=== PATIENT | male | born 1980 | race Caucasian/White ===

== ENCOUNTER 2024-07-08 15:08 | Outpatient (CLI) | payer OTHER, SELFPAY | END 2024-07-08 15:09 | disposition home or self-care (01) | LOC: ANHSURGERY 15:13 | PROVIDERS: PCP Family Medicine; Visit Provider Surgery | DX: K40.90 Unilateral inguinal hernia, without obstruction or gangrene, not specified as recurrent (principal); Z01.818 Encounter for other preprocedural examination | CPT/HCPCS: 36415; 86850; 86900; 86901 ==

== ENCOUNTER 2024-07-11 01:16 | Day surgery (SDC) | payer OTHER, SELFPAY ==
[2024-07-03 15:17] VITALS: BMI 23.5
--- NOTE | 2024-07-03 15:23 | PC.NURSE ---
Report to the Outpatient Waiting Room, entrance under the green pavilion located off [facility], at time _0600_ on date _[id number]_. Planned Procedure Time: _0730_.? Time changes happen often and if your time is changed the preop area will call you the afternoon before. - You and your visitor will be asked to self-screen and do not enter if you have any COVID symptoms. Please call surgeon if you need to reschedule. - A mask is optional within the hospital at this time. Patients may have clear liquids (water, carbonated beverages, clear teas, apple juice) until 3 hours prior to surgery with a maximum of 20 ounces. - No food from midnight until time of surgery and no smoking, or chewing tobacco (or any form of nicotine). No chewing gum, candy or mints. Take only the following medications with a SIP of water on the morning of surgery: ___None____ DO NOT STOP ANY OF YOUR OTHER PRESCRIPTION MEDICATIONS PRIOR TO SURGERY EXCEPT THE FOLLOWING Hold all vitamins and supplements for 3 days per anesthesiologist. Medications to discontinue per physician Date to take last dose Please no make-up, nail belarusian, hairspray, perfume, deodorant, or body powder the day of surgery.? No jewelry (including any body piercings) or valuables the day of surgery, leave them at home.? Please take a shower or bath the night before, or the morning of, surgery with an antibacterial soap.? Wear comfortable, loose fitting clothing.? - Jewelry must be removed prior to entering the operating room.? Rings and piercings that are not removed may be cut off. - The hospital will not accept responsibility for valuables.? - Please leave all valuables, including medications, at home the day of surgery. If you are going home after surgery, a licensed special events driver must drive you home.? - NO public transportation without another adult if you receive anesthesia. - We recommend that an adult stay with you for 24 hours following discharge. - We also recommend that you do not drive, make important decision, drink alcoholic beverages, or take any drugs that were not prescribed by your health care provider for at least 24 hours after your discharge time. Follow any additional instructions given to you from your surgeon. Telephone instructions given to __Lance___and asked if any additional questions and then verbalized understanding. Patient advised to call surgeon office or pre surgery nurse liaison [phone] if any additional questions.
[2024-07-11] VITALS (12 sets, daily range): BP systolic 126–156; BP diastolic 77–104; PULSE 70–104; RESP 14–20; TEMP 36.4–36.5; O2SAT 96–100
[2024-07-11] MEDS: ACETAMINOPHEN 500 MG TABLET 1000 MG PO (06:35)
[2024-07-11] MEDS: LACTATED RINGERS 1,000 ML 30 ML IV CONT ×3 (06:40→11:36)
[2024-07-11] MEDS: KETOROLAC 15 MG/ML VIAL (*BKC) IV PUSH ×2 (06:45→10:16)
--- NOTE | 2024-07-11 07:14 | PM.IMHP ---
H&P: HPI History of Present Illness Date/Time: 07/11/24 07:14 Chief Complaint: Right inguinal hernia Narrative: Shantanu is a 43 y/o male who presents with a right groin bulge at the request of Dr. Garcia. He reports noticing this about 1 year ago. He is experiencing pain that is worse with activity. The bulge reduces when he lays down. He denies pain with urination and urinary frequenc Review of Systems Review of Systems: The remainder of the review of systems to include constitutional, HEENT, cardiovascular, respiratory, GI, , integumentary, musculoskeletal, endocrine, immunologic, hematologic, psychiatric, and neurologic are all negative except for which is mentioned above in the HPI. [facility] Past Medical History Medical History Cigarette nicotine dependence, uncomplicated Elevated blood pressure reading without diagnosis of hypertension Family History Family History Father Prediabetes Mother No problems noted. Sibling Asthma Grandparent Acute myocardial infarction Grandparent Lung cancer Social History Social History Smoking packs per day: 0.75 Smoking cigarettes per day: 15.0 Years smoked: 20 Smoking pack-years: 15.00 Smoking status: Current every day smoker Tobacco type: cigarettes Alcohol intake: current Drinks per week: 14 Alcohol use details: Usually 1 drink per day Substance use: current Substance use type: marijuana Other substance usage details: every once in a while Education: Bachelor's Degree Living arrangements: with family Additional occupation/education comments: [employer] Spiritual care concerns: No Meds Home Medications and Allergies Home Medications ?Medication ?Instructions ?Recorded ?Confirmed ?Type No Home Medications 11/06/23 07/03/24 History Allergies Allergy/AdvReac Type Severity Reaction Status Date / Time No Known Allergies Allergy Unknown Verified 07/11/24 07:09 Exam Const: General: comfortable and no acute distress HENMT: Ears: TM's normal bilaterally Face/Nose/Sinus: Normal nares present Mouth: Yes moist mucous membranes Eyes: General: appearance normal, both eyes and all related structures Sclera: sclerae normal Pupils: Equal, round and reactive pupils present Neck: Neck: supple and no JVD Resp: Effort & Inspection: normal respiratory effort Auscultation: clear to auscultation bilaterally Cardio: Rate: regular rate Rhythm: regular rhythm GI: GI Palp: Yes Soft to palpation, No Firmness to palpation present (GI), No Tenderness to palpation present (GI), No Guarding due to palpation present (GI) and No Hernia present : Other: Penis: normal penis Scrotum: scrotum normal Testes: Testes normal Other: No evidence of left inguinal hernia. Small to moderate sided right inguinal hernia that is reducible. Skin: General skin exam: normal color and no rashes or lesions noted Neuro: General: gait normal Speech: normal speech Motor exam (neuro): 5/5 motor strength present throughout Sensory Exam: normal sensation Extrem: General: normal to inspection Psych: Mental Status: mental status grossly normal Affect: normal affect Assessment and Plan Assessment and plan (1) Reducible right inguinal hernia: Code(s): K40.90 - Unilateral inguinal hernia, without obstruction or gangrene, not specified as recurrent Status: Acute Assessment and Plan: I have reviewed Dr. Garcia's office note prior to the office visit. The patient has a reducible right groin bulge that causes pain with activity. I have recommended a robotic assisted laparoscopic right inguinal hernia repair with mesh, to be done under general anesthesia as an outpatient. The procedure was discussed in detail including the use of mesh, general description, and usual course of recovery. Risks of recurrence, infection, postop bleeding, prolonged postop pain, possible need to return to surgery were discussed as well. All questions were answered. Patient would like to proceed. Follow-up 2 weeks postoperatively.
--- NOTE | 2024-07-11 07:18 | WPDHPUPDATE1 ---
History and Physical Update Update Date/Time: 07/11/24 07:18 History and Physical has been reviewed, including an updated exam of the patient. There are NO changes in the patient's condition. Risks, benefits, and alternatives have been discussed and questions answered. Patient agrees to proceed with procedure.
--- NOTE | 2024-07-11 07:26 | WPDANESEPPF ---
Anes - Initial Pre Proc Eval Procedure: Operation Date: 07/11/24 07:30 Proposed Procedures p Robotic Assisted Laparoscopic Right Inguinal Hernia Repair with Mesh - Vidal Beck MD Date/Time: 07/11/24 07:26 Surgeon: Vidal Beck MD Pre Op Diagnosis: Right Inguinal Hernia Patient Data Age: 44 Gender: M Height: 1.7 m Weight: 71.3 kg Last Vital Signs Temp 97.7 F 07/11/24 06:15 Pulse 70 07/11/24 06:15 Resp 16 07/11/24 06:15 BP 130/84 07/11/24 07:23 Pulse Ox 98 07/11/24 06:15 O2 Del Method Room Air 07/11/24 06:15 Allergies Allergy/AdvReac Type Severity Reaction Status Date / Time No Known Allergies Allergy Unknown Verified 07/11/24 07:09 Home Medications ?Medication ?Instructions ?Recorded ?Confirmed ?Type No Home Medications 11/06/23 07/03/24 History Patient hx anesthesia problems: none Family hx anesthesia problems: none Results Review: All pre-operative results and documents have been reviewed as part of the pre-operative evaluation. [facility] Past Medical History Medical History Cigarette nicotine dependence, uncomplicated Elevated blood pressure reading without diagnosis of hypertension Family History Family History Father Prediabetes Mother No problems noted. Sibling Asthma Grandparent Acute myocardial infarction Grandparent Lung cancer Social History Social History Smoking packs per day: 0.75 Smoking cigarettes per day: 15.0 Years smoked: 20 Smoking pack-years: 15.00 Smoking status: Current every day smoker Tobacco type: cigarettes Alcohol intake: current Drinks per week: 14 Alcohol use details: Usually 1 drink per day Substance use: current Substance use type: marijuana Other substance usage details: every once in a while Education: Bachelor's Degree Living arrangements: with family Additional occupation/education comments: [employer] Spiritual care concerns: No Anes - Eval Final PreProcedure Day of Procedure 07/11/24 07:26 Patient weight: normal Heart: regular rate and rhythm Lungs: clear to auscultation Airway: Mallampati scale class II Neurological: alert and oriented Last oral intake: >/= 8 hours ASA classification: II Emergent: no Anesthetic plan: proceed Anesthesia type and monitoring: general ETT and standard monitoring Results Review: All pre-operative results and documents have been reviewed as part of the pre-operative evaluation. Informed Consent: The patient's anesthetic plan and its attendant risks and benefits were discussed with the patient/family/POA. Questions were solicited and answers provided to the satisfaction of the patient/family/POA.
[2024-07-11] MEDS: ceFAZolin 2 GM/D5W 50 ML 2 GM/50 ML BAG IVPB (07:33)
[2024-07-11] MEDS: LIDO 1%/EPINEPHRINE 1:100,000 50 ML VIAL 30 ML INFILTRATE (07:55)
[2024-07-11] MEDS: BUPivacaine HCL 0.5% 10 ML AMP 30 ML INFILTRATE (07:56)
--- NOTE | 2024-07-11 10:44 | W.PM.PROC2 ---
Procedure Note - Detailed Date of Procedure 07/11/24 Pre-op Diagnosis Right Inguinal Hernia Post-op Diagnosis Other (Incarcerated indirect right inguinal hernia) Procedure Performed Robotic assisted laparoscopic incarcerated right inguinal hernia repair with Bard 3D mid weight mesh Surgeon Vidal Beck MD Classics Professor Ev [facility] Anesthesia General Indications Patient is a 44-year-old gentleman presented with a right inguinal hernia which was reducible in the office. He was having pain with the hernia and was enlarging. He presents now for elective right inguinal hernia repair with mesh via robotic assisted laparoscopic approach. Findings Patient a large indirect right inguinal hernia with incarcerated appendix within the hernia sac. No evidence of left inguinal hernia. Description of Procedure After informed consent was obtained patient was brought to the operating room was placed supine position and general endotracheal anesthesia was administered. The abdomen and bilateral groins were then prepped and draped usual sterile fashion. A time-out was then performed correctly identifying the patient as well as procedure to be performed. Site marking was verified and he was given perioperative IV antibiotics. I started by placing Optiview port in left upper quadrant utilizing direct optical insertion. Once inside the abdomen insufflated to adequate pneumoperitoneum with 15 mmHg of CO2. The patient was then placed in 15? head-down Trendelenburg and then the small bowel fell out the pelvis. I could see that the patient had a incarcerated right inguinal hernia which appeared to be an indirect hernia. Within the hernia sac was the appendix which was incarcerated. There is no evidence of a left inguinal hernia. I then placed additional 8mm robotic trocars across the mid abdomen and then the [place] Sonia robot was brought to the patient's bedside and the arms were attached to the robotic ports. Robotic instruments were then advanced into the abdomen under direct visualization. I then scrubbed out the procedure sent down at the robotic console to perform the dissection robotically. A preperitoneal flap was started just anterior medial to the right anterior superior iliac spine. It was carried across the lower right abdomen to almost the midline. The right median umbilical ligament was divided. I continued dissection in this preperitoneal plane until I reached the right pubic tubercle. I dissected down into the space of Retzius for couple of cm and mobilized the right side of the bladder off of the pubic symphysis. I then proceeded to dissect out the large indirect inguinal hernia sac. Care was taken to preserve the inferior epigastric vessels without injury. I did successfully reduced still very large hernia sac which was tightly adherent to the cord structures. However the vas deferens and testicular vessels were dissected out and preserved without transection. The hernia sac was then everted I could see that the appendix which was very long but did not appear to be inflamed in any way. It was left in place attached to the hernia sac which was everted. The peritoneal flap was then dissected up onto the psoas muscle until the vas deferens and testicular vessels . I made sure that the peritoneum was dissected back proximally enough that the mesh would not pull up with the closure of the peritoneal flap. A extra-large piece of Bard 3D mid weight mesh oriented for the right side was chosen for the repair. It was placed into the abdomen through the after school program assistant 10mm trocar port site and then situated within the dissected space covering the direct space, indirect space, and femoral spaces. The mesh was then secured to the tissues around the pubic tubercle utilizing 2-0 Vicryl sutures. The lower edge of the mesh extended down into the space of Retzius by couple of cm. The lateral part of the mesh was then secured to the muscle anterior medial to the right anterior superior iliac spine. Another suture was placed to approximate the mesh to the muscle in the direct space. The mesh laid out very nicely covering the whole myopectineal orifice. There was no tension on the repair. I then closed the peritoneal flap over the mesh. This was done with a running 2-0 absorbable V lock suture. The mesh was then completely covered with peritoneum excluded from the intra-abdominal viscera. I once again checked the cecum and the appendix and the appeared to be normal without injury. All the small bowel appeared to be normal. There was no excessive bleeding. I then removed all the robotic instruments from the abdomen and the Sonia robot was undocked. I then scrubbed back into the procedure to close the umbilical 8mm robotic trocar port and the 10mm left upper quadrant trocar port. All the trocar ports were then removed under direct visualization all port sites appeared hemostatic. The periumbilical 8mm trocar port was closed at the fascial level utilizing 0 Vicryl suture. The left upper quadrant 10mm trocar port was closed with a 0 Vicryl suture at the fascial level as well. All the incisions were then irrigated sterile saline solution and closed at the skin level utilizing a running subcuticular 4-0 Monocryl suture. The incisions were then cleaned the skin glue was applied. The patient tolerated the procedure well no complications. All sponges, needles, and instrument counts were correct at the end procedure. EBL was _ 30 __cc. The patient was awakened and taken to recovery in stable and satisfactory condition. A scrotal support was placed on the patient before he left operating room. Implants Bard 3D mid weight mesh oriented for the right side measuring [id number]. Estimated Blood Loss 30 Drains No Packing No Pathology None sent Complications No immediate complications Condition Stable Disposition PACU [facility] Billing Surgery - Charge Forward: Surgery Billing
[2024-07-11] MEDS: fentaNYL CITRATE INJ (*CRX) 100 MCG/2 ML VIAL 25 MCG IV PUSH ×4 (11:36→11:50)
== END 2024-07-11 13:07 | disposition home or self-care (01) ==
PROVIDERS: PCP Family Medicine; Visit Provider Surgery
PROC: 8E0Y4CZ Robotic Assisted Procedure of Lower Extremity, Percutaneous Endoscopic Approach (ICD-10-PCS; CPT 49650; principal; 2024-07-11 07:30)
DX: K40.30 Unilateral inguinal hernia, with obstruction, without gangrene, not specified as recurrent (principal); F17.210 Nicotine dependence, cigarettes, uncomplicated; F12.90 Cannabis use, unspecified, uncomplicated
CPT/HCPCS: 49650; S2900; 36415; 86850; 86900; 86901; A9270; C1781; J0690; J1100; J1885; J2003; J2004; J2250; J2405; J2704; J3010; J7030; J7120